=== PATIENT | female | born 1970 | race Caucasian/White ===

== ENCOUNTER → 2016-06-29 | Outpatient (CLI) | payer OTHER ==
--- NOTE | 2016-06-29 15:53 | MA ---
Screening Digital Mammogram With iCAD Analysis Clinical Indications: Routine screening. Technique: Standard cephalocaudal and mediolateral oblique projections are obtained. The examination is processed by the iCAD computer-aided detection system. Comparison: Baseline study; no previous mammograms have been performed. Breast density: Type C; Heterogeneously dense. Findings: CAD was reviewed. There is a possible nodular asymmetry in the slightly medial mid right br east. No suspicious calcifications are identified. No left breast abnormality is seen. Impression: Possible right breast nodule requires further evaluation, BI-RADS 0. Recommendation: Spot compression assessment of the right breast with ultrasound suggested if the abno rmality persists on diagnostic evaluation. [facility] will send a result letter to the patient. Dense breast parenchyma diminishes mammographic sensitivity. Negative mammography should not preclude additional workup of a clinically suspicious finding. The patient's information is entered into a reminder system with a target due date for her next mammo gram.
== END ==
LOC: BRMIMAGING 13:18
DX: Z12.31 Encounter for screening mammogram for malignant neoplasm of breast (principal); N63 Unspecified lump in breast
CPT/HCPCS: G0202

== ENCOUNTER → 2016-07-07 | Outpatient (CLI) | payer OTHER ==
--- NOTE | 2016-07-07 10:12 | MA ---
Right Diagnostic Digital Mammogram with iCAD Clinical Indications: Asymmetric density on recent screening mammogram. Technique: Digital spot compression CC, spot mediolateral oblique and true lateral views. This exami nation was processed by the iCAD computer-aided detection system. Comparison: Recent mammogram. June 29, 2016. Breast Density: 3, 50-75%. Findings: Previous asymmetric density identified is no longer detected on the additional views or beatrice e lateral views. Although this probably represents normal overlapping breast parenchyma, there is mod erately dense parenchymal pattern and no prior studies for comparison. Therefore ultrasound will be p erformed for further evaluation. Impression: ACR BI-RADS 0: Needs further imaging. Recommendation: Ultrasound of the right breast which will be subsequently performed. Please see ultra sound report and recommendations. [facility] will send a result letter to the patient. Negative mammography should not preclude additional workup of a clinically suspicious finding. Findings and recommendations have been discussed with the patient who agrees with the plan. The patient's information is entered into a reminder system with a target due date for her next mammo gram.
--- NOTE | 2016-07-07 11:35 | US ---
Ultrasound Right Breast History: Nodular dense parenchymal pattern in the right breast on mammography in the upper inner quad rant. COMPARISON: Recent mammograms, including today's. Technique: Ultrasound imaging of the upper inner quadrant of the right breast from the 12 to the 4 o' clock position was performed by the artificial foliage arranger and me. Findings: No ultrasound evidence of dominant solid or cystic lesion in the right breast upper inner q uadrant. Mammogram finding is consistent with dense parenchymal pattern. No suspicious findings on ma mmography or ultrasound. Impression: 1. BI-RADS 1: Negative ultrasound of the right breast. 2. No ultrasound evidence of dominant solid or cystic lesion in the right breast upper inner quadrant . 3. Recommend annual screening mammograms with next mammogram in June 2017. Findings and recommendations have been discussed with the patient who agrees with the plan.
== END ==
LOC: BRMIMAGING 09:28
DX: Z12.39 Encounter for other screening for malignant neoplasm of breast (principal); N63 Unspecified lump in breast
CPT/HCPCS: 76641-PO; G0206

== ENCOUNTER → 2017-07-11 | Outpatient (CLI) | payer OTHER | LOC: BRMIMAGING 13:13 | PROVIDERS: ATTEND Family Medicine | DX: Z12.31 Encounter for screening mammogram for malignant neoplasm of breast (principal) ==

== ENCOUNTER → 2018-07-17 | Outpatient (CLI) | payer BC, OTHER | LOC: BRMIMAGING 07-12 08:36 | DX: Z12.31 Encounter for screening mammogram for malignant neoplasm of breast (principal) ==